=== PATIENT | female | born 1985 | race Caucasian/White ===

== ENCOUNTER 2018-01-12 18:21 | Emergency (ER) | payer OTHER ==
[~2018-01-12] VITALS: Ht 160 cm; Wt 69.7 kg
[2018-01-12 19:23] LABS: URINE HCG NEGATIVE (NEG)
[2018-01-12 19:35] LABS: CLARITY,URINE Clear (Clear); COLOR,URINE Yellow (Yellow); GLUCOSE, URINE Negative (Neg); KETONES,URINE Negative (Neg); LEUKOCYTE ESTERASE ,URINE Negative (Neg); NITRITES, URINE Negative (Neg); OCCULT BLOOD,URINE Negative (Neg); PH,URINE 6.5 (4.8-8.0); PROTEIN,URINE Negative (Neg); UROBILINOGEN,URINE 0.2 E.U/dL (0.2-1.0)
[2018-01-12 19:39] LABS: UA COLLECTION TYPE CLN CATCH MIDSTREAM
[2018-01-12] MEDS ORDERED: metroNIDAZOLE 500mg tablet PO ONE (19:45)
[2018-01-12] MEDS ORDERED: CefTRIAXone 250MG IM Kit w/LIDOcaine IM ONE (19:45)
[2018-01-12] MEDS ORDERED: azithromycin 250mg tablet PO ONE (19:45)
[2018-01-12 20:04] VITALS: BP 109/67
== END 2018-01-12 20:10 | disposition home or self-care (01) ==
LOC: ER 18:22
DX: A64 Unspecified sexually transmitted disease (principal); G89.29 Other chronic pain; F17.200 Nicotine dependence, unspecified, uncomplicated; F12.90 Cannabis use, unspecified, uncomplicated; F15.90 Other stimulant use, unspecified, uncomplicated
CPT/HCPCS: 36415; 81003; 81025; 87491; 87591; 96372; 99284; J0696; J3490; 99283

== ENCOUNTER 2018-03-16 20:28 | Emergency (ER) | payer MEDICAID ==
[2018-03-16 21:22] VITALS: BP 116/72
== END 2018-03-16 23:21 | disposition left against medical advice (07) ==
LOC: ER 20:28
DX: B86 Scabies (principal); Z53.21 Procedure and treatment not carried out due to patient leaving prior to being seen by health care provider

== ENCOUNTER 2018-03-18 12:51 | Emergency (ER) | payer MEDICAID ==
[~2018-03-18] VITALS: Ht 160 cm; Wt 53.0 kg
[2018-03-18 13:06] VITALS: BP 109/68
[2018-03-18] MEDS ORDERED: PERM60CR19 TP (13:36)
== END 2018-03-18 14:23 | disposition home or self-care (01) ==
LOC: ER 12:52
DX: L98.9 Disorder of the skin and subcutaneous tissue, unspecified (principal); G89.29 Other chronic pain; F17.200 Nicotine dependence, unspecified, uncomplicated; F12.10 Cannabis abuse, uncomplicated; F15.10 Other stimulant abuse, uncomplicated; Z56.0 Unemployment, unspecified
CPT/HCPCS: 99282

== ENCOUNTER 2018-09-19 03:00 | Emergency (ER) | payer MEDICAID ==
[~2018-09-19] VITALS: Ht 160 cm; Wt 59.1 kg
[2018-09-19] MEDS ORDERED: CefTRIAXone 1000mg IM Kit (w/lidocaine diluent) IM ONE (03:25)
[2018-09-19] MEDS ORDERED: azithromycin 250mg tablet PO ONE (03:25)
[2018-09-19 03:50] VITALS: BP 121/61
== END 2018-09-19 03:53 | disposition home or self-care (01) ==
LOC: ER 03:00
DX: M79.672 Pain in left foot (principal); M79.671 Pain in right foot; Z11.3 Encounter for screening for infections with a predominantly sexual mode of transmission; G89.29 Other chronic pain; F12.90 Cannabis use, unspecified, uncomplicated; F15.90 Other stimulant use, unspecified, uncomplicated; Z59.0 Homelessness; Z56.0 Unemployment, unspecified
CPT/HCPCS: 99282; J0696

== ENCOUNTER 2018-10-13 19:19 | Emergency (ER) | payer MEDICAID ==
[~2018-10-13] VITALS: Ht 160 cm; Wt 61.4 kg
[2018-10-13 19:24] VITALS: BP 128/80
[2018-10-13 22:47] LABS: CLARITY,URINE CLEAR (Clear); COLOR,URINE YELLOW (Yellow); GLUCOSE, URINE NEGATIVE (Neg); KETONES,URINE NEGATIVE (Neg); LEUKOCYTE ESTERASE ,URINE TRACE (Neg); NITRITES, URINE NEGATIVE (Neg); OCCULT BLOOD,URINE NEGATIVE (Neg); PH,URINE 5.5 (4.8-8.0); PROTEIN,URINE NEGATIVE (Neg); UROBILINOGEN,URINE 0.2 E.U/dL (0.2-1.0)
[2018-10-13 22:53] LABS: URINE AMPHETAMINE SCREEN NEGATIVE (Neg); URINE BARBITUATE SCREEN NEGATIVE (Neg); URINE BENZODIAZEPINES SCREEN NEGATIVE (Neg); URINE CANNABINOID SCREEN NEGATIVE (Neg); URINE COCAINE SCREEN NEGATIVE (Neg); URINE METHADONE SCREEN NEGATIVE (Neg); URINE OPIATE SCREEN NEGATIVE (Neg); URINE PHENCYCLIDINE SCREEN NEGATIVE (Neg)
[2018-10-13 23:02] LABS: UA COLLECTION TYPE CLN CATCH MIDSTREAM
[2018-10-13 23:09] LABS: BACTERIA,URINE FEW /HPF (Neg); MUCUS STRANDS NONE SEEN /LPF (Neg); RBC,URINE NONE SEEN /HPF (0-2); SQUAMOUS EPITHELIAL CELL,UR FEW /LPF (FEW); WBC,URINE 0-4 /HPF (0-4)
[2018-10-13] MEDS ORDERED: HYDR25SU48 RC (23:10)
[2018-10-13] MEDS ORDERED: hyDROXYzine 50 mg/ml injection ***IM only IM ONE (23:15)
[2018-10-14 09:03] LABS: OCCULT BLOOD STOOL NEGATIVE (Neg)
== END 2018-10-13 23:18 | disposition home or self-care (01) ==
LOC: ER 19:22
DX: L29.9 Pruritus, unspecified (principal); R10.2 Pelvic and perineal pain; R10.84 Generalized abdominal pain; R51 Headache; G89.29 Other chronic pain; F17.210 Nicotine dependence, cigarettes, uncomplicated; F12.90 Cannabis use, unspecified, uncomplicated; F15.90 Other stimulant use, unspecified, uncomplicated; Z79.899 Other long term (current) drug therapy; Z59.0 Homelessness; Z56.0 Unemployment, unspecified
CPT/HCPCS: 36415; 80305; 81001; 82272; 87045; 87046; 87088; 87328; 87329; 87336; 89055; 99283; J3410

== ENCOUNTER 2018-10-20 09:17 | Emergency (ER) | payer MEDICAID ==
[~2018-10-20] VITALS: Ht 160 cm; Wt 61.2 kg
[~2018-10-20 09:17] MED LIST: HYDR25SU48 RC
[2018-10-20 09:48] VITALS: BP 117/77
[2018-10-20 10:10] LABS: CLARITY,URINE CLEAR (Clear); COLOR,URINE YELLOW (Yellow); GLUCOSE, URINE NEGATIVE (Neg); KETONES,URINE TRACE mg/dl (Neg); LEUKOCYTE ESTERASE ,URINE MODERATE (Neg); NITRITES, URINE NEGATIVE (Neg); OCCULT BLOOD,URINE NEGATIVE (Neg); PH,URINE 5.5 (4.8-8.0); PROTEIN,URINE NEGATIVE (Neg); UROBILINOGEN,URINE 0.2 E.U/dL (0.2-1.0)
[2018-10-20 10:11] LABS: URINE HCG NEGATIVE (NEG)
[2018-10-20 10:15] LABS: UA COLLECTION TYPE VOIDED
[2018-10-20 10:16] LABS: BACTERIA,URINE 1+ /HPF (Neg); MUCUS STRANDS NONE SEEN /LPF (Neg); RBC,URINE NONE SEEN /HPF (0-2); SQUAMOUS EPITHELIAL CELL,UR FEW /LPF (FEW); WBC,URINE 0-4 /HPF (0-4)
[2018-10-20] MEDS ORDERED: azithromycin 250mg tablet PO ONE (10:25)
[2018-10-20] MEDS ORDERED: CefTRIAXone 1000mg IM Kit (w/lidocaine diluent) IM ONE (10:25)
[2018-10-20] MEDS ORDERED: ondansetron 4mg rapidly disintigrating tab PO ONE (11:15)
== END 2018-10-20 12:02 | disposition home or self-care (01) ==
LOC: ER 09:18
DX: A59.9 Trichomoniasis, unspecified (principal); G89.29 Other chronic pain; F41.9 Anxiety disorder, unspecified; R10.30 Lower abdominal pain, unspecified; F32.9 Major depressive disorder, single episode, unspecified; F17.200 Nicotine dependence, unspecified, uncomplicated; F12.10 Cannabis abuse, uncomplicated; F15.10 Other stimulant abuse, uncomplicated; Z59.0 Homelessness; Z56.0 Unemployment, unspecified; Z32.02 Encounter for pregnancy test, result negative
CPT/HCPCS: 36415; 81001; 81025; 87088; 87210; 87491; 87591; 96372; 99283; J0696

== ENCOUNTER 2018-11-04 16:41 | Emergency (ER) | payer MEDICAID ==
[~2018-11-04] VITALS: Ht 160 cm; Wt 56.7 kg
[2018-11-04 18:31] VITALS: BP 112/79
[2018-11-04] MEDS ORDERED: HYDR-3686 PO (19:56)
[2018-11-04] MEDS ORDERED: IBUP-1984 PO (19:56)
[2018-11-04] MEDS ORDERED: DOCU-28 PO (19:56)
[2018-11-04] MEDS ORDERED: METR500T4 PO (19:56)
[2018-11-04] MEDS ORDERED: PHEN1SUP96 PR (19:56)
== END 2018-11-04 20:08 | disposition home or self-care (01) ==
LOC: ER 16:43
DX: F41.9 Anxiety disorder, unspecified (principal); G89.29 Other chronic pain; F32.9 Major depressive disorder, single episode, unspecified; F15.90 Other stimulant use, unspecified, uncomplicated; F12.90 Cannabis use, unspecified, uncomplicated; Z98.890 Other specified postprocedural states; Z88.1 Allergy status to other antibiotic agents; Z79.899 Other long term (current) drug therapy; Z59.0 Homelessness; Z56.0 Unemployment, unspecified
CPT/HCPCS: 99284

== ENCOUNTER 2018-11-12 03:02 | Emergency (ER) | payer MEDICAID ==
[~2018-11-12] VITALS: Ht 157.5 cm; Wt 61.4 kg
[~2018-11-12 03:02] MED LIST changes: +DOCU-28 PO; +HYDR-3686 PO; -HYDR25SU48 RC; +METR-211 PO; +PHEN1SUP96 PR
[2018-11-12] MEDS ORDERED: LORazepam 1 MG tablet PO ONE (03:55)
[2018-11-12] MEDS ORDERED: OLANZapine 5mg rapidly disint. tablet PO ONE (03:55)
[2018-11-12] MEDS ORDERED: ACET-2119 PO (04:07)
[2018-11-12] MEDS ORDERED: POLY17PO10 PO (04:07)
[2018-11-12] MEDS ORDERED: ATOM40CA7 PO (04:07)
[2018-11-12] MEDS ORDERED: ALBU18HF2 IH (04:07)
[2018-11-12] MEDS ORDERED: IBUP-1984 PO (04:07)
[2018-11-12] MEDS ORDERED: HYDR50CA PO (04:07)
[2018-11-12] MEDS ORDERED: TOPI25TA15 PO (04:07)
[2018-11-12] MEDS ORDERED: NICO-630 (04:07)
[2018-11-12] MEDS ORDERED: PALI3TAB PO (04:07)
[2018-11-12] MEDS ORDERED: METR-211 PO (04:07)
[2018-11-12 04:41] LABS: URINE HCG NEGATIVE (NEG)
[2018-11-12 04:49] LABS: URINE AMPHETAMINE SCREEN NEGATIVE (Neg); URINE BARBITUATE SCREEN NEGATIVE (Neg); URINE BENZODIAZEPINES SCREEN NEGATIVE (Neg); URINE CANNABINOID SCREEN NEGATIVE (Neg); URINE COCAINE SCREEN NEGATIVE (Neg); URINE METHADONE SCREEN NEGATIVE (Neg); URINE OPIATE SCREEN NEGATIVE (Neg); URINE PHENCYCLIDINE SCREEN NEGATIVE (Neg)
[2018-11-12 04:52] LABS: BASOPHILS # (AUTO) 0.1 X10'3 (0-0.2); BASOPHILS % (AUTO) 0.4 % (0-1); EOSINOPHILS # (AUTO) 0.2 X10'3 (0-0.9); EOSINOPHILS % (AUTO) 1.8 % (0-6); HEMATOCRIT 36.6 % (35.0-45.0); HEMOGLOBIN 12.6 g/dl (12.0-16.0); LYMPHOCYTES # (AUTO) 3.8 X10'3 (1.1-4.8); LYMPHOCYTES % (AUTO) 30.7 % (21-51); MEAN CORPUSCULAR HEMOGLOBIN 31.5 PG (27.0-31.0); MEAN CORPUSCULAR HGB CONC 34.4 % (33.0-36.5); MEAN CORPUSCULAR VOLUME 91.6 FL (78-98); MEAN PLATELET VOLUME 7.9 FL (7.4-10.4); MONOCYTES # (AUTO) 0.7 X10'3 (0-0.9); MONOCYTES % (AUTO) 5.6 % (2-12); NEUTROPHILS # (AUTO) 7.7 X10'3 (1.8-7.7); NEUTROPHILS % (AUTO) 61.5 % (42-75); PLATELET COUNT 335 X10'3 (140-440); RED BLOOD COUNT 3.99 X10'6 (4.20-5.60); RED CELL DISTRIBUTION WIDTH 12.2 % (11.5-14.5); WHITE BLOOD COUNT 12.5 X10'3 (4.5-11.0)
[2018-11-12 04:53] LABS: CLARITY,URINE CLEAR (Clear); COLOR,URINE YELLOW (Yellow); GLUCOSE, URINE NEGATIVE (Neg); KETONES,URINE NEGATIVE (Neg); LEUKOCYTE ESTERASE ,URINE NEGATIVE (Neg); NITRITES, URINE NEGATIVE (Neg); OCCULT BLOOD,URINE NEGATIVE (Neg); PH,URINE 6.5 (4.8-8.0); PROTEIN,URINE NEGATIVE (Neg); UA COLLECTION TYPE CLN CATCH MIDSTREAM; UROBILINOGEN,URINE 0.2 E.U/dL (0.2-1.0)
[2018-11-12 04:54] LABS: ALANINE AMINOTRANSFERASE 31 U/L (12-78); ALBUMIN 3.8 G/DL (3.4-5.0); ALBUMIN/GLOBULIN RATIO 1.2 (1.1-1.5); ALKALINE PHOSPHATASE 68 IU/L (46-116); ANION GAP 10 (8-16); ASPARTATE AMINO TRANSFERASE 21 U/L (10-37); BILIRUBIN,TOTAL 0.3 MG/DL (0.1-1.0); BLOOD UREA NITROGEN 14 MG/DL (7-18); BUN/CREATININE RATIO 16.3 (6.6-38.0); CALCIUM 9.3 MG/DL (8.5-10.1); CHLORIDE 106 MMOL/L (99-107); CREATININE 0.86 MG/DL (0.40-0.90); GLUCOSE 97 MG/DL (70-104); POTASSIUM 3.5 MMOL/L (3.5-5.1); SODIUM 141 MMOL/L (135-145); TOTAL CARBON DIOXIDE 24.9 MMOL/L (24-32); TOTAL PROTEIN 7.1 G/DL (6.4-8.2); eGFR 75 ML/MIN
[2018-11-12 05:05] LABS: ETHANOL < 0.010 GM/DL (0.0-0.010)
[2018-11-12 05:21] LABS: CARBAMAZEPINE (TEGRETOL) 8.6 UG/ML (4.0-12.0)
[2018-11-12] MEDS ORDERED: LORazepam 1 MG tablet PO PRN (14:05)
[2018-11-12] MEDS ORDERED: olanzapine 10mg tablet PO PRN (14:05)
[2018-11-12] MEDS: ibuprofen 200mg tablet PO SCH (16:00)
[2018-11-12] MEDS: hydrOXYzine 25 MG tablet PO SCH (16:09)
[2018-11-12] MEDS ORDERED: olanzapine 10mg tablet PO SCH (20:00)
[2018-11-12] MEDS ORDERED: acetaminophen 325mg tablet PO PRN (20:00)
[2018-11-12] MEDS ORDERED: metroNIDAZOLE 500mg tablet PO SCH (20:00)
[2018-11-12] MEDS ORDERED: topiramate 25mg tablet PO SCH (21:00)
[2018-11-13] MEDS: hydrOXYzine 25 MG tablet PO SCH
[2018-11-13] MEDS: ibuprofen 200mg tablet PO SCH
[2018-11-13 05:45] VITALS: BP 108/72
[2018-11-13] MEDS ORDERED: nicotine 7mg patch - 24hr TD SCH (08:00)
[2018-11-13] MEDS ORDERED: PALIPERIDONE 3 MG TAB.ER.24 PO SCH (08:00)
[2018-11-13] MEDS ORDERED: polyethylene glycol 3350 17gm powd pack PO SCH (08:00)
== END 2018-11-13 06:27 ==
LOC: ER 03:02
DX: F29 Unspecified psychosis not due to a substance or known physiological condition (principal); Z00.8 Encounter for other general examination; G89.29 Other chronic pain; F41.9 Anxiety disorder, unspecified; F31.9 Bipolar disorder, unspecified; F17.210 Nicotine dependence, cigarettes, uncomplicated; F12.90 Cannabis use, unspecified, uncomplicated; F15.90 Other stimulant use, unspecified, uncomplicated; Z59.0 Homelessness; Z56.0 Unemployment, unspecified; Z98.890 Other specified postprocedural states; Z79.899 Other long term (current) drug therapy
CPT/HCPCS: 36415; 80053; 80156; 80305; 80320; 81003; 81025; 84443; 85025; 99285; Q0177; J3490

== ENCOUNTER 2018-11-25 17:19 | Emergency (ER) | payer MEDICAID ==
[~2018-11-25] VITALS: Ht 160 cm; Wt 59.1 kg
[~2018-11-25 17:19] MED LIST changes: +ACET-2119 PO; +ALBU18HF2 IH; +ATOM40CA7 PO; -HYDR-3686 PO; +HYDR50CA PO; +IBUP-1984 PO; +NICO-630; +PALI3TAB PO; +POLY17PO10 PO; +TOPI25TA15 PO
[2018-11-25 17:34] VITALS: BP 103/79
== END 2018-11-25 18:16 | disposition home or self-care (01) ==
LOC: ER 17:20
DX: E86.0 Dehydration (principal); J02.9 Acute pharyngitis, unspecified; G89.29 Other chronic pain; F12.90 Cannabis use, unspecified, uncomplicated; F15.90 Other stimulant use, unspecified, uncomplicated; Z98.890 Other specified postprocedural states; Z59.0 Homelessness; Z56.0 Unemployment, unspecified; Z79.899 Other long term (current) drug therapy
CPT/HCPCS: 99284

== ENCOUNTER 2019-02-10 08:09 | Emergency (ER) | payer MEDICAID ==
[~2019-02-10 08:09] MED LIST changes: +METR-159 PO; -METR-211 PO
[2019-02-10] MEDS ORDERED: ERYT1OIN6 LEFTEYE (12:24)
== END 2019-02-10 10:24 | disposition left against medical advice (07) ==
LOC: ER 08:10
DX: H57.10 Ocular pain, unspecified eye (principal); Z53.21 Procedure and treatment not carried out due to patient leaving prior to being seen by health care provider

== ENCOUNTER 2019-02-10 11:15 | Emergency (ER) | payer MEDICAID ==
[~2019-02-10] VITALS: Ht 157.5 cm; Wt 52.7 kg
[2019-02-10 11:57] VITALS: BP 118/69
[2019-02-10] MEDS ORDERED: erythromycin ophthalmic ointment 1gm tube EACHEYE ONE (12:15)
[2019-02-10] MEDS ORDERED: TETRACAINE 0.5% 5 ML OPHTHALMIC DROPS LEFTEYE ONE (12:15)
[2019-02-10] MEDS ORDERED: proparacaine 0.5% ophthalmic drops 15ml LEFTEYE ONE (12:20)
[2019-02-10] MEDS ORDERED: ERYT1OIN6 LEFTEYE (12:24)
== END 2019-02-10 12:42 | disposition home or self-care (01) ==
LOC: ER 11:17
DX: T15.12XA Foreign body in conjunctival sac, left eye, initial encounter (principal); F12.90 Cannabis use, unspecified, uncomplicated; F15.90 Other stimulant use, unspecified, uncomplicated; Z56.0 Unemployment, unspecified; Z59.0 Homelessness; W22.8XXA Striking against or struck by other objects, initial encounter; Y93.89 Activity, other specified; Y92.89 Other specified places as the place of occurrence of the external cause; Y99.9 Unspecified external cause status
CPT/HCPCS: 99281

== ENCOUNTER 2019-03-24 09:36 | Emergency (ER) | payer MEDICAID ==
[~2019-03-24] VITALS: Ht 172.7 cm; Wt 56.8 kg
[2019-03-24] MEDS ORDERED: TETanus/Pertussis (Acell)/Diphther VAC/PF (Tdap-Adult) 0.5ml syringe IM ONE (09:50)
[2019-03-24] MEDS ORDERED: LORazepam 2 mg/ml vial IM ONE (09:50)
[2019-03-24] MEDS ORDERED: diphenhydrAMINE 50 mg/ml inj IM ONE (09:50)
[2019-03-24] MEDS ORDERED: haloperidol lactate 5mg/ml inj IM ONE (09:50)
[2019-03-24 10:11] LABS: BASOPHILS # (AUTO) 0.1 X10'3 (0-0.2); BASOPHILS % (AUTO) 1.3 % (0-1); EOSINOPHILS # (AUTO) 0.2 X10'3 (0-0.9); EOSINOPHILS % (AUTO) 1.7 % (0-6); HEMATOCRIT 40.9 % (35.0-45.0); HEMOGLOBIN 14.1 g/dl (12.0-16.0); LYMPHOCYTES # (AUTO) 3.2 X10'3 (1.1-4.8); LYMPHOCYTES % (AUTO) 30.4 % (21-51); MEAN CORPUSCULAR HEMOGLOBIN 31.7 PG (27.0-31.0); MEAN CORPUSCULAR HGB CONC 34.5 g/dL (33.0-36.5); MEAN CORPUSCULAR VOLUME 91.8 FL (78-98); MEAN PLATELET VOLUME 7.7 FL (7.4-10.4); MONOCYTES # (AUTO) 1.2 X10'3 (0-0.9); MONOCYTES % (AUTO) 11.8 % (2-12); NEUTROPHILS # (AUTO) 5.8 X10'3 (1.8-7.7); NEUTROPHILS % (AUTO) 54.8 % (42-75); PLATELET COUNT 387 X10'3 (140-440); RED BLOOD COUNT 4.46 X10'6 (4.20-5.60); RED CELL DISTRIBUTION WIDTH 12.6 % (11.5-14.5); WHITE BLOOD COUNT 10.5 X10'3 (4.5-11.0)
[2019-03-24 10:32] LABS: ALANINE AMINOTRANSFERASE 133 U/L (12-78); ALBUMIN 3.7 G/DL (3.4-5.0); ALKALINE PHOSPHATASE 93 IU/L (46-116); ANION GAP 10 (8-16); ASPARTATE AMINO TRANSFERASE 83 U/L (10-37); BLOOD UREA NITROGEN 19 MG/DL (7-18); BUN/CREATININE RATIO 24.7 (6.6-38.0); CALCIUM 9.2 MG/DL (8.5-10.1); CHLORIDE 104 MMOL/L (99-107); CREATININE 0.77 MG/DL (0.40-0.90); GLUCOSE 115 MG/DL (70-104); POTASSIUM 3.4 MMOL/L (3.5-5.1); SODIUM 139 MMOL/L (135-145); TOTAL CARBON DIOXIDE 25.1 MMOL/L (24-32); TOTAL PROTEIN 7.3 G/DL (6.4-8.2); eGFR 85 ML/MIN
[2019-03-24 10:41] LABS: ETHANOL < 0.010 GM/DL (0.0-0.010)
--- NOTE | 2019-03-24 12:34 | NUR ---
PT RESTING SUPINE, RR EVEN UNLABORED, NO SIGNS OF ANY DISTRESS.
--- NOTE | 2019-03-24 16:27 | NUR ---
Unable to complete Pt assesment, Pt not cooperative. Pt sleeping, rolled over to side facing wall when attempting to interact with Pt.
--- NOTE | 2019-03-24 18:01 | NUR ---
PATIENT ESCORTED BY RN TO OVERFLOW BED 21. PATTI GURROLA ASSUMED CARE.
--- NOTE | 2019-03-24 20:00 | NUR ---
The patient has been asleep on her bed since coming over at change of shift. She did get up to use the bathroom and to provide a urine specimen. She appeared dirty and unkempt. She mumbled when asked questions. She was unable to state the day or date and appeared to be very drowsy and was unable to fully participate in a psychiatric assessment. She did eat some of her tray before falling back asleep.
[2019-03-24 20:08] LABS: URINE HCG NEGATIVE (NEG)
[2019-03-24 20:40] LABS: URINE AMPHETAMINE SCREEN POSITIVE (Neg); URINE BARBITUATE SCREEN NEGATIVE (Neg); URINE BENZODIAZEPINES SCREEN NEGATIVE (Neg); URINE CANNABINOID SCREEN POSITIVE (Neg); URINE COCAINE SCREEN NEGATIVE (Neg); URINE METHADONE SCREEN NEGATIVE (Neg); URINE OPIATE SCREEN NEGATIVE (Neg); URINE PHENCYCLIDINE SCREEN NEGATIVE (Neg)
--- NOTE | 2019-03-24 21:30 | NUR ---
Packet faxed to [facility]. Spoke to Gene @ [place] office to confirm receipt of packet.
--- NOTE | 2019-03-24 21:54 | NUR ---
The patient appears to be asleep at this time
--- NOTE | 2019-03-24 23:54 | NUR ---
The patient appears to be alseep at this time
--- NOTE | 2019-03-25 01:45 | NUR ---
The patient appears to be asleep
--- NOTE | 2019-03-25 05:06 | NUR ---
The patient appears to be asleep
--- NOTE | 2019-03-25 06:38 | NUR ---
Pt up to use the bathroom, asking to eat.
--- NOTE | 2019-03-25 08:30 | NUR ---
Pt awoke to eat breakfast, stated, "I'm hungry, tired, and dizzy." Pt denies depression, SI/HI/AH/VH, pt has pressured disorganized speech and is difficult to understand. She mentions something about a 5150, when asked pt why she was put on a 5150, she stated that she was bothering an attorney law clerk, she was looking for a little girl, they told her no one was there.
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
[2019-03-25] MEDS ORDERED: GABA-532 PO ×2 (09:03→09:14)
[2019-03-25] MEDS ORDERED: ATOM25CA PO (09:14)
[2019-03-25] MEDS ORDERED: IBUP-1985 PO (09:14)
[2019-03-25] MEDS ORDERED: ibuprofen 200mg tablet PO PRN (10:15)
[2019-03-25] MEDS ORDERED: gabapentin 300mg capsule PO SCH (10:30)
--- NOTE | 2019-03-25 10:35 | NUR ---
Pt lying in bed, appears to be sleeping.
--- NOTE | 2019-03-25 11:00 | NUR ---
Pt awake, in bathroom washing up , provided with hygiene basin, personal care items, wash cloth, towel, and clean scrubs.
--- NOTE | 2019-03-25 13:19 | NUR ---
Pt is eating lunch.
[2019-03-25 16:04] VITALS: BP 108/70
== END 2019-03-25 16:06 ==
LOC: ER 09:36
DX: F29 Unspecified psychosis not due to a substance or known physiological condition (principal); F31.9 Bipolar disorder, unspecified; F41.9 Anxiety disorder, unspecified; F20.9 Schizophrenia, unspecified; G89.29 Other chronic pain; F12.90 Cannabis use, unspecified, uncomplicated; F15.90 Other stimulant use, unspecified, uncomplicated; Z59.0 Homelessness; Z56.0 Unemployment, unspecified; Z98.890 Other specified postprocedural states; Z79.899 Other long term (current) drug therapy
CPT/HCPCS: 36415; 80053; 80305; 80320; 81025; 84443; 85025; 90471; 90715; 96372; 99285; J1200; J1630; J2060

== ENCOUNTER 2019-04-11 10:12 | Emergency (ER) | payer MEDICAID ==
[~2019-04-11] VITALS: Ht 157.5 cm; Wt 52.3 kg
[~2019-04-11 10:12] MED LIST changes: -ACET-2119 PO; -ALBU18HF2 IH; +ATOM25CA PO; -ATOM40CA7 PO; -DOCU-28 PO; +GABA-532 PO; -HYDR50CA PO; -IBUP-1984 PO; +IBUP-1985 PO; -METR-159 PO; -NICO-630; -PALI3TAB PO; -PHEN1SUP96 PR; -POLY17PO10 PO; -TOPI25TA15 PO
[2019-04-11] MEDS ORDERED: diphenhydrAMINE 50 mg/ml inj IM ONE (10:15)
[2019-04-11] MEDS ORDERED: haloperidol lactate 5mg/ml inj IM ONE (10:15)
[2019-04-11] MEDS ORDERED: LORazepam 2 mg/ml vial IV ONE (10:15)
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
--- NOTE | 2019-04-11 10:26 | NUR ---
INCONTINENT OF LARGE AMOUNT MUSHY STOOL. CLEANED UP AND GOWN APPLIED.
[2019-04-11] MEDS ORDERED: LIDOcaine 1% w/epiNEPHrine 1:200,000 30ml vial IM ONE (10:45)
[2019-04-11 11:03] LABS: BASOPHILS # (AUTO) 0.1 X10'3 (0-0.2); BASOPHILS % (AUTO) 0.6 % (0-1); EOSINOPHILS # (AUTO) 0.1 X10'3 (0-0.9); EOSINOPHILS % (AUTO) 0.6 % (0-6); HEMATOCRIT 36.8 % (35.0-45.0); HEMOGLOBIN 12.5 g/dl (12.0-16.0); LYMPHOCYTES # (AUTO) 2.3 X10'3 (1.1-4.8); LYMPHOCYTES % (AUTO) 19.5 % (21-51); MEAN CORPUSCULAR HEMOGLOBIN 31.2 PG (27.0-31.0); MEAN CORPUSCULAR VOLUME 91.8 FL (78-98); MEAN PLATELET VOLUME 7.3 FL (7.4-10.4); MONOCYTES # (AUTO) 0.7 X10'3 (0-0.9); MONOCYTES % (AUTO) 5.6 % (2-12); NEUTROPHILS # (AUTO) 8.8 X10'3 (1.8-7.7); NEUTROPHILS % (AUTO) 73.7 % (42-75); PLATELET COUNT 350 X10'3 (140-440); RED BLOOD COUNT 4.01 X10'6 (4.20-5.60); RED CELL DISTRIBUTION WIDTH 12.5 % (11.5-14.5); WHITE BLOOD COUNT 11.9 X10'3 (4.5-11.0)
[2019-04-11 11:17] LABS: ALANINE AMINOTRANSFERASE 123 U/L (12-78); ALBUMIN 3.4 G/DL (3.4-5.0); ALBUMIN/GLOBULIN RATIO 0.9 (1.1-1.5); ALKALINE PHOSPHATASE 104 IU/L (46-116); ANION GAP 8 (8-16); ASPARTATE AMINO TRANSFERASE 59 U/L (10-37); BILIRUBIN,TOTAL 0.5 MG/DL (0.1-1.0); BLOOD UREA NITROGEN 17 MG/DL (7-18); BUN/CREATININE RATIO 21.5 (6.6-38.0); CALCIUM 8.7 MG/DL (8.5-10.1); CHLORIDE 104 MMOL/L (99-107); CREATININE 0.79 MG/DL (0.40-0.90); GLUCOSE 99 MG/DL (70-104); POTASSIUM 3.3 MMOL/L (3.5-5.1); SODIUM 138 MMOL/L (135-145); TOTAL CARBON DIOXIDE 26.5 MMOL/L (24-32); eGFR 82 ML/MIN
[2019-04-11 11:39] LABS: HIV ANTIBODY 1&2 RAPID NON-REACTIVE (Neg)
[2019-04-11 11:48] VITALS: BP 107/61
[2019-04-11 12:05] LABS: URINE HCG NEGATIVE (NEG)
--- NOTE | 2019-04-11 12:06 | NUR ---
SUTURES APPLIED TO FACIAL WOUNDS. ONE STITCH TO RIGHT LATERAL EYEBROW LAC AND 4 STITCHES APPLIED TO LEFT FOREHEAD LAC. TOLERATED PROCEDURE WELL. OLD WOUNDS NOTED ON BILAT WRISTS. WOUNDS CLEANED AND DRESSINGS APPLIED.
[2019-04-11 12:21] LABS: URINE AMPHETAMINE SCREEN POSITIVE (Neg); URINE BARBITUATE SCREEN NEGATIVE (Neg); URINE BENZODIAZEPINES SCREEN NEGATIVE (Neg); URINE CANNABINOID SCREEN POSITIVE (Neg); URINE COCAINE SCREEN NEGATIVE (Neg); URINE METHADONE SCREEN NEGATIVE (Neg); URINE OPIATE SCREEN NEGATIVE (Neg); URINE PHENCYCLIDINE SCREEN NEGATIVE (Neg)
[2019-04-11 12:42] LABS: CLARITY,URINE CLEAR (Clear); COLOR,URINE YELLOW (Yellow); GLUCOSE, URINE NEGATIVE (Neg); KETONES,URINE NEGATIVE (Neg); LEUKOCYTE ESTERASE ,URINE NEGATIVE (Neg); NITRITES, URINE NEGATIVE (Neg); OCCULT BLOOD,URINE NEGATIVE (Neg); PROTEIN,URINE 100 mg/dl (Neg); UROBILINOGEN,URINE 0.2 E.U/dL (0.2-1.0)
[2019-04-11 12:47] LABS: UA COLLECTION TYPE STRAIGHT CATH
[2019-04-11 12:50] LABS: RBC,URINE 0-2 /HPF (0-2)
[2019-04-11 12:51] LABS: BACTERIA,URINE FEW /HPF (Neg); CAL OXALATE CRYSTALS FEW /HPF (NEGATIVE); SQUAMOUS EPITHELIAL CELL,UR FEW /LPF (FEW)
[2019-04-12 09:28] LABS: HEP B CORE AB, IGM Negative (Negative); HEP B CORE AB, TOT Negative (Negative); HEPATITIS C ANTIBODY <0.1 s/co ratio (0.0-0.9)
== END 2019-04-11 12:29 ==
LOC: ER 10:12
DX: S01.81XA Laceration without foreign body of other part of head, initial encounter (principal); S01.112A Laceration without foreign body of left eyelid and periocular area, initial encounter; S61.512A Laceration without foreign body of left wrist, initial encounter; S61.511A Laceration without foreign body of right wrist, initial encounter; F15.10 Other stimulant abuse, uncomplicated; F29 Unspecified psychosis not due to a substance or known physiological condition; F31.9 Bipolar disorder, unspecified; F20.9 Schizophrenia, unspecified; G89.29 Other chronic pain; F17.210 Nicotine dependence, cigarettes, uncomplicated; F12.90 Cannabis use, unspecified, uncomplicated; Z98.890 Other specified postprocedural states; Z59.0 Homelessness; Z56.0 Unemployment, unspecified; Z79.899 Other long term (current) drug therapy; W01.198A Fall on same level from slipping, tripping and stumbling with subsequent striking against other object, initial encounter; Y93.02 Activity, running; Y92.89 Other specified places as the place of occurrence of the external cause; Y99.8 Other external cause status
CPT/HCPCS: 12013; 36415; 70450; 72125; 80053; 80305; 81001; 81025; 85025; 86703; 86704; 86705; 86706; 86803; 87088; 96372; 96374; 99284; J1200; J1630; J2060; J3490

== ENCOUNTER 2019-11-09 08:13 | Emergency (ER) | payer MEDICAID ==
[~2019-11-09] VITALS: Ht 157.5 cm; Wt 71.8 kg
[~2019-11-09 08:13] MED LIST changes: +LIDOcaine 1% W/epiNEPHrine 1:100,000 20ml vial ONE
[2019-11-09 08:24] VITALS: BP 122/83
[2019-11-09] MEDS ORDERED: CEPH-572 PO (08:43)
[2019-11-09] MEDS ORDERED: TETanus/Pertussis (Acell)/Diphther VAC/PF (Tdap-Adult) 0.5ml syringe IMVAC ONE (08:45)
== END 2019-11-09 09:16 | disposition home or self-care (01) ==
LOC: ER 08:15
DX: L02.31 Cutaneous abscess of buttock (principal); G89.29 Other chronic pain; F41.9 Anxiety disorder, unspecified; F31.9 Bipolar disorder, unspecified; F20.9 Schizophrenia, unspecified; F10.99 Alcohol use, unspecified with unspecified alcohol-induced disorder; F12.90 Cannabis use, unspecified, uncomplicated; F15.90 Other stimulant use, unspecified, uncomplicated; Z59.0 Homelessness; Z56.0 Unemployment, unspecified; Z88.8 Allergy status to other drugs, medicaments and biological substances; Z79.899 Other long term (current) drug therapy; Y90.9 Presence of alcohol in blood, level not specified
CPT/HCPCS: 10060; 99283

== ENCOUNTER 2019-12-25 07:56 | Emergency (ER) | payer MEDICAID ==
[~2019-12-25] VITALS: Ht 157.5 cm; Wt 80.0 kg
[~2019-12-25 07:56] MED LIST changes: -LIDOcaine 1% W/epiNEPHrine 1:100,000 20ml vial ONE
[2019-12-25 08:00] VITALS: BP 117/78
== END 2019-12-25 09:32 | disposition home or self-care (01) ==
LOC: ER 07:57
DX: Z00.00 Encounter for general adult medical examination without abnormal findings (principal); G89.29 Other chronic pain; F41.9 Anxiety disorder, unspecified; F31.9 Bipolar disorder, unspecified; F20.9 Schizophrenia, unspecified; F12.90 Cannabis use, unspecified, uncomplicated; F15.90 Other stimulant use, unspecified, uncomplicated; F10.99 Alcohol use, unspecified with unspecified alcohol-induced disorder; Z59.0 Homelessness; Z56.0 Unemployment, unspecified; Z98.890 Other specified postprocedural states; Z88.8 Allergy status to other drugs, medicaments and biological substances; Z79.899 Other long term (current) drug therapy; Y90.9 Presence of alcohol in blood, level not specified
CPT/HCPCS: 99281

== ENCOUNTER 2020-01-04 13:52 | Emergency (ER) | payer MEDICAID ==
[~2020-01-04] VITALS: Ht 157.5 cm; Wt 78.2 kg
[2020-01-04 13:55] VITALS: BP 134/77
[2020-01-04] MEDS ORDERED: ALBU8.5H8 IH (15:35)
[2020-01-04] MEDS ORDERED: BENZ-16 PO (15:35)
== END 2020-01-04 16:03 | disposition home or self-care (01) ==
LOC: ER 13:54
DX: J11.1 Influenza due to unidentified influenza virus with other respiratory manifestations (principal); G89.29 Other chronic pain; F41.9 Anxiety disorder, unspecified; F31.9 Bipolar disorder, unspecified; F20.9 Schizophrenia, unspecified; F12.90 Cannabis use, unspecified, uncomplicated; F15.90 Other stimulant use, unspecified, uncomplicated; Z72.89 Other problems related to lifestyle; Z98.890 Other specified postprocedural states; Z59.0 Homelessness; Z56.0 Unemployment, unspecified; Z88.8 Allergy status to other drugs, medicaments and biological substances; Z79.899 Other long term (current) drug therapy
CPT/HCPCS: 99283

== ENCOUNTER 2020-01-31 02:46 | Emergency (ER) | payer MEDICAID ==
[~2020-01-31] VITALS: Ht 160 cm; Wt 72.7 kg
[~2020-01-31 02:46] MED LIST changes: +ALBU8.5H8 IH; +BENZ-16 PO
[2020-01-31 02:48] VITALS: BP 146/104
--- NOTE | 2020-01-31 03:09 | NUR ---
PT SMOKED METHAMPHETAMINE AND IS NOW HAVING PARANOIDAL TENDANDIES. SHE BELIEVES HER THROAT IS SORE FROM SMOKING METH.
== END 2020-01-31 03:51 | disposition home or self-care (01) ==
LOC: ER 02:46
DX: J02.9 Acute pharyngitis, unspecified (principal); G89.29 Other chronic pain; F41.9 Anxiety disorder, unspecified; F31.9 Bipolar disorder, unspecified; F20.9 Schizophrenia, unspecified; F12.90 Cannabis use, unspecified, uncomplicated; F15.90 Other stimulant use, unspecified, uncomplicated; Z98.890 Other specified postprocedural states; Z59.0 Homelessness; Z56.0 Unemployment, unspecified; Z88.8 Allergy status to other drugs, medicaments and biological substances; Z79.899 Other long term (current) drug therapy
CPT/HCPCS: 99281

== ENCOUNTER 2020-05-13 09:37 | Emergency (ER) | payer MEDICAID ==
[~2020-05-13] VITALS: Ht 160 cm; Wt 76.0 kg
[2020-05-13 09:54] VITALS: BP 144/93
== END 2020-05-13 13:53 | disposition left against medical advice (07) ==
LOC: ER 09:38
DX: O21.9 Vomiting of pregnancy, unspecified (principal); Z3A.01 Less than 8 weeks gestation of pregnancy; Z53.21 Procedure and treatment not carried out due to patient leaving prior to being seen by health care provider

== ENCOUNTER 2020-05-13 14:00 | Emergency (ER) | payer MEDICAID ==
[~2020-05-13] VITALS: Ht 157.5 cm; Wt 76.0 kg
[2020-05-13] MEDS ORDERED: azithromycin 250mg tablet PO ONE (16:10)
[2020-05-13] MEDS ORDERED: CefTRIAXone 250MG IM Kit w/LIDOcaine IM ONE (16:10)
[2020-05-13 16:25] LABS: URINE HCG NEGATIVE (NEG)
[2020-05-13 16:28] LABS: CLARITY,URINE CLEAR (Clear); COLOR,URINE YELLOW (Yellow); GLUCOSE, URINE NEGATIVE (Neg); KETONES,URINE NEGATIVE (Neg); LEUKOCYTE ESTERASE ,URINE NEGATIVE (Neg); NITRITES, URINE NEGATIVE (Neg); OCCULT BLOOD,URINE NEGATIVE (Neg); PH,URINE 6.5 (4.8-8.0); PROTEIN,URINE NEGATIVE (Neg); UROBILINOGEN,URINE 0.2 E.U/dL (0.2-1.0)
[2020-05-13 16:32] LABS: UA COLLECTION TYPE CLN CATCH MIDSTREAM
[2020-05-13 16:36] LABS: URINE AMPHETAMINE SCREEN NEGATIVE (Neg); URINE BARBITUATE SCREEN NEGATIVE (Neg); URINE BENZODIAZEPINES SCREEN NEGATIVE (Neg); URINE CANNABINOID SCREEN POSITIVE (Neg); URINE COCAINE SCREEN NEGATIVE (Neg); URINE METHADONE SCREEN NEGATIVE (Neg); URINE OPIATE SCREEN NEGATIVE (Neg); URINE PHENCYCLIDINE SCREEN NEGATIVE (Neg)
--- NOTE | 2020-05-13 17:08 | NUR ---
pt given medications and is awaiting lab results
[2020-05-13 17:37] VITALS: BP 137/81
== END 2020-05-13 17:40 | disposition home or self-care (01) ==
LOC: ER 14:01
DX: R10.9 Unspecified abdominal pain (principal); R11.0 Nausea; M54.5 Low back pain; Z11.3 Encounter for screening for infections with a predominantly sexual mode of transmission; G89.29 Other chronic pain; F41.9 Anxiety disorder, unspecified; F31.9 Bipolar disorder, unspecified; F20.9 Schizophrenia, unspecified; F12.90 Cannabis use, unspecified, uncomplicated; F17.200 Nicotine dependence, unspecified, uncomplicated; Z98.890 Other specified postprocedural states; Z59.0 Homelessness; Z56.0 Unemployment, unspecified; Z88.8 Allergy status to other drugs, medicaments and biological substances; Z79.899 Other long term (current) drug therapy
CPT/HCPCS: 36415; 80305; 81003; 81025; 87210; 87491; 87591; 96372; 99283; J0696

== ENCOUNTER 2020-10-13 16:28 | Emergency (ER) | payer MEDICAID ==
[~2020-10-13] VITALS: Ht 167.6 cm; Wt 60.0 kg
[2020-10-13 17:06] VITALS: BP 118/84
== END 2020-10-13 17:52 | disposition left against medical advice (07) ==
LOC: ER 16:29
DX: M79.606 Pain in leg, unspecified (principal); Z53.21 Procedure and treatment not carried out due to patient leaving prior to being seen by health care provider

== ENCOUNTER 2025-10-12 08:47 | Emergency (ER) | payer MEDICAID ==
[~2025-10-12] VITALS: Ht 157.5 cm; Wt 87.4 kg
[~2025-10-12 08:47] MED LIST changes: +ALBU8.5H17 IH; -ALBU8.5H8 IH; -IBUP-1985 PO; +IBUP600T52 PO
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
[2025-10-12 09:58] VITALS: BP 126/97; PULSE 98; RESP 16; TEMP 97; O2SAT 98
[2025-10-16] MEDS ORDERED: ONDA-243 PO (22:06)
[2025-10-16] MEDS ORDERED: PANT20TA18 PO (22:28)
== END 2025-10-12 10:02 | disposition home or self-care (01) ==
LOC: ER 08:47
DX: Z00.00 Encounter for general adult medical examination without abnormal findings (principal); F12.90 Cannabis use, unspecified, uncomplicated; F31.9 Bipolar disorder, unspecified; F41.9 Anxiety disorder, unspecified; Z88.8 Allergy status to other drugs, medicaments and biological substances; Z79.899 Other long term (current) drug therapy; Z98.890 Other specified postprocedural states; Z59.00 Homelessness unspecified; Z56.0 Unemployment, unspecified
CPT/HCPCS: 99282

== ENCOUNTER 2025-10-27 10:39 | Emergency (ER) | payer MEDICAID ==
[~2025-10-27] VITALS: Ht 157.5 cm; Wt 88.2 kg
[~2025-10-27 10:39] MED LIST changes: +ONDA-243 PO; +PANT20TA18 PO
[2025-10-27 10:41] VITALS: TEMP 97.8
[2025-10-27] MEDS ORDERED: PENI500T2 PO (12:28)
[2025-10-27] MEDS ORDERED: BACI1CAP6 PO (12:28)
--- NOTE | 2025-10-27 12:28 | Physician Documentation ---
HPI ~ General Chief Complaint: Tooth Problem Stated Complaint: TOOTH PAIN Time Seen by MD: 12:00 Primary Medical Doctor: NONE Source: patient Mode of Arrival: POV Exam Limitations: no limitations History of Present Illness HPI Comment Patient presents secondary to a two week history of dental pain. Pain started in the right lower quadrant in his now located throughout the right side of her mouth. She has multiple dental caries including a crown that fell off on her right lower quadrant a couple of years ago that was never replaced. She has tried taking Tylenol without effect. No fevers or chills. History of factor five Leiden deficiency and fibromyalgia. Was asked, but otherwise denies review of systems. Medication Reconciliation Allergies: Coded Allergies: phenazopyridine (Verified Allergy, Unknown, red, itchy, 10/11/25) Uncoded Allergies: UNKNOWN ANTIBIOTIC MEDS (Allergy, Unknown, 05/03/15) Scheduled Atomoxetine Hcl (Strattera), 1 CAP PO QAM, (Reported) Bacillus Coagulans (Probiotic), 1 CAP PO Q12H Benzonatate (Tessalon Perle), 1 CAP PO Q8H Gabapentin (Gabapentin), 1 CAP PO BID, (Reported) Pantoprazole Sodium (Protonix), 2 TAB PO DAILY Penicillin V Potassium* (Penicillin VK*), 1 TAB PO QID Scheduled PRN Albuterol Sulfate (Proair Hfa), 2 PUFFS IH Q4H PRN for SOB or wheezing Ibuprofen (Ibuprofen), 1 TAB PO Q8H PRN for pain, (Reported) ONDANSETRON ODT 4mg tablet (Ondansetron Odt), 1 TAB PO Q6H PRN PRN for nausea/vomiting Past Medical History Past Medical History: Constipation, Chronic Pain, Anxiety, Bipolar, Depression, Psychosis, Schizophrenia Other Past Medical History: Factor five Leiden deficiency Past Surgical History: noncontributory, orthopedic surgeries Last Menstrual Period: Sep 30, 2025 Alcohol Use: None Drug Use: marijuana Lives with: Family Lives In: Homeless Occupation: unemployed Review of Systems ROS Review of systems negative except documented in HPI. Physical Exam Vital Signs: RN Vital Signs have been reviewed: Yes, Temperature: 97.8, Source: Oral, Heart Rate: 95, Respiratory Rate: 16, BP: 134/90, Pulse Oximetry: 99, Weight: 88.200 Oxygen Flow Rate: 0 Pulse Oximetry Reflects: adequate oxygenation Physical Exam General: Awake, alert, oriented. No apparent distress. Lungs: Clear to auscultation bilaterally CV: Regular rate and rhythm. No murmur. Oral exam: There is no erythema of the posterior pharynx. Gums are not inflamed. There is a obvious Tatiana to the tooth on the right lower quadrant. Progress Results/Orders Results/Orders Vital Signs 10/27/25 10/27/25 10:41 12:49 Temp 97.8 Pulse 95 73 Resp 16 18 B/P (MAP) 134/90 120/87 Pulse Ox 99 98 O2 Flow Rate 0 Medical Decision Making Additional information obtaine: N/A Findings Patient presents with complaints of dental pain. Not immunosuppressed. Afebrile. Well-appearing. Patent airway. Low clinical suspicion for deep space infection and there is no concern for airway compromise. No evidence of tooth fracture, avulsion, bleeding socket. No evidence of Ry's angina, periapical abscess. Patient instructed to treat pain with ibuprofen/acetaminophen until they see a dentist. Patient was treated for dental abscess with abx. Instructed to use warm salt water rinses. Discussed return precautions. Differential Dx:Considerations: Include: Alveolar fracture, Facial Cellulitis, Periapical abscess, Tooth Fracture Departure Time of Disposition: 12:27 Impression: Primary Impression: Dental abscess Condition: Stable Discharge Instructions: Dental Caries, Adult, Dental Abscess Additional Instructions: Take antibiotics as prescribed. Return for new or worsening symptoms. Follow up with your dentist. Probiotics given at your request to prevent yeast infections. May also take [id number] probiotics. Referrals: NO PRIMARY CARE PROVIDER (PCP) Prescriptions Bacillus Coagulans (Probiotic) 10 Billion Cell Capsule. 1 CAP PO Q12H for 30 Days, #60 CAP 0 Refills Prov: MARVA CHAVEZ NP 10/27/25 Penicillin V Potassium* (Penicillin VK*) 500 Mg Tablet 1 TAB PO QID for 10 Days, #40 TAB Prov: MARVA CHAVEZ NP 10/27/25 Education Educated: Patient Educated regarding: diagnosis, treatment, need for follow up Signature Scribe Signature: No scribe Attestation: The note accurately reflects work and decisions made by me.Marva Chavez - WISAM 10/27/25 13:36 This note was created with the assistance of voice recognition software whereby errors in grammar, syntax, and/or spelling may have occurred despite active proofreading efforts by the author. Please do not hesitate to contact the provider for clarification or for questions regarding the content of this document. MARVA CHAVEZ NP Oct 27, 2025 12:28
[2025-10-27 12:49] VITALS: BP 120/87; PULSE 73; RESP 18; O2SAT 98
== END 2025-10-27 12:52 | disposition home or self-care (01) ==
LOC: ER 10:40
DX: K04.7 Periapical abscess without sinus (principal); G89.29 Other chronic pain; F31.9 Bipolar disorder, unspecified; F20.9 Schizophrenia, unspecified; M79.7 Fibromyalgia; F12.90 Cannabis use, unspecified, uncomplicated; F41.9 Anxiety disorder, unspecified; Z88.8 Allergy status to other drugs, medicaments and biological substances; Z79.899 Other long term (current) drug therapy; Z56.0 Unemployment, unspecified; Z59.00 Homelessness unspecified; Z98.890 Other specified postprocedural states
CPT/HCPCS: 99283